=== PATIENT | female | born 1980 | race Caucasian/White ===

== ENCOUNTER 2021-09-26 05:48 | Observation (INO) | payer OTHER ==
[~2021-09-26] VITALS: Ht 157.5 cm; Wt 108.9 kg
[~2021-09-26 05:48] MED LIST: CLARITIN5 MG PO; QVAR7.3 G1 INH; STOOL SOFTENER1 EAC2 PO; VENTOLIN HFA18 GM INH; WELLBUTRIN XL150 MG PO; ZANTAC 7575 MG PO
== END 2021-09-26 12:30 | disposition home or self-care (01) ==
LOC: FBC 05:48 → FBCO 05:48 → FBC 06:15 → FBCO 06:15 → DS 07:30 → FBCO 07:30 → FBC 12:30
PROVIDERS: ADMIT Obstetrics & Gynecology; ATTEND Obstetrics & Gynecology
DX: O32.0XX0 Maternal care for unstable lie, not applicable or unspecified (principal); O32.2XX0 Maternal care for transverse and oblique lie, not applicable or unspecified; O40.3XX0 Polyhydramnios, third trimester, not applicable or unspecified; O09.523 Supervision of elderly multigravida, third trimester; O99.213 Obesity complicating pregnancy, third trimester; E66.9 Obesity, unspecified; Z3A.38 38 weeks gestation of pregnancy
CPT/HCPCS: 01958; 36415; 59412; 85027; 86850; 86900; 86901; G0378; J2405; J3105; J7121

== ENCOUNTER 2021-10-02 07:28 | Inpatient (IN) | payer OTHER ==
[~2021-10-02] VITALS: Ht 157.5 cm; Wt 109.3 kg
--- NOTE | ~2021-10-02 | OR ---
[facility] [address], [place] [address] Draft DATE OF OPERATION: 10/02/2021 SURGEON: Natalie Garcia DO PLASTIC DIE MAKER APPRENTICE: Dr. Baker. PROCEDURE: Primary low-transverse with bilateral tubal ligation. PREOPERATIVE DIAGNOSES: Term , unstable lie, polyhydramnios failed version, 39 weeks gestation, history of cholestasis in , advanced maternal age, maternal obesity. POSTOPERATIVE DIAGNOSES: Term , unstable lie, polyhydramnios failed version, 39 weeks gestation, history of cholestasis in , advanced maternal age, maternal obesity as well as term delivered. BLOOD LOSS: 600 mL. ANESTHESIA: Spinal. FINDINGS: A viable term female weighing 7 pounds 1 ounce with Apgars of 8 and 9 at 1 and 5 minutes respectively. position transverse with head in maternal right hip at the time of delivery. Normal-appearing uterus, bilateral tubes and ovaries. INDICATIONS: The patient is a 41-year-old G5, P3-0-1-3 at 39 and one week's gestation, who presented this morning with complaints of leaking fluid. Nitrazine was positive and due to known unstable lie with history of failed version, this bedside ultrasound was performed which confirmed transverse lie with head to maternal left. Risks, benefits, and alternatives to primary were discussed. The patient confirmed desire for sterilization. Of note, tubal ligation in case the indication had been approved previously by the ethics committee. The patient's is also very much in agreement with this plan. PATIENT NAME: KY BOWER OPERATIVE REPORT DATE OF : 84 REPORT #: [id number] PHYSICIAN: NATALIE GARCIA DO PCP: TIFFANIE LATHAM MD REPORT IS CONFIDENTIAL AND NOT TO BE RELEASED WITHOUT AUTHORIZATION [facility] [address] [place] [id number] Draft DESCRIPTION OF PROCEDURE: The patient was taken back to the operating room where she was given 3 g of Ancef and 500 mg of azithromycin. Spinal anesthesia was placed and she was prepped and draped in normal sterile fashion in supine position with a leftward tilt. A Pfannenstiel incision was made with a scalpel, carried down to the underlying layer of fascia with Bovie cautery. The fascia was incised in midline and extended laterally with Chin scissors. Inferior margin of fascia was grasped and elevated with Pily clamps. Underlying rectus muscles dissected off bluntly and sharply with Chin scissors. This was then released in a similar fashion. The superior margin was grasped and elevated with Chin scissors. Underlying rectus muscle was dissected off bluntly and sharply. Peritoneum was entered bluntly and extended with lateral traction. Ashkan retractor was placed. Of note, immediately upon entry head was palpable in a cephalic position, however, while Ashkan retractor is being placed, head repositioned to transverse with head to maternal right hip. Due to unstable lie, decision was made to proceed with low-transverse rather than automatic incision and the 's head was easily grasped and guided to the hysterotomy and through. Nuchal x1 was noted and reduced and then shoulders and remainder of body were easily delivered through the hysterotomy. The cord was immediately doubly clamped and cut and baby was handed off to waiting nursery personnel including the flight readiness technician. Cord blood was collected for type and Sharon and placenta was manually extracted. Uterus was cleared of clots and debris. Hysterotomy was closed in a two-layer closure, 1st with O Monocryl in a running locked fashion, second with O Monocryl in an imbricating manner with hemostasis resulting. Uterus was then exteriorized, providing excellent visualization of bilateral tubes. The right tube was grasped with a Angel, followed to the fimbriated end. Hole was made in the mesosalpinx with Bovie cautery and O chromic was used to suture ligate the mesosalpinx distally and proximally from the hole in the mesosalpinx. Tube was then excised, completing right salpingectomy. Excellent hemostasis was noted. No bleeding was noted and attention was turned to the left side. In a similar manner, after following the tube to the fimbriated end, a window was made in the mesosalpinx with the Bovie cautery. O chromic was used to suture ligate the mesosalpinx through the fimbriated end and then proximally to the cornua. Excellent hemostasis was noted. Metzenbaum scissors were used to excise the tube. Hemostasis was again noted and uterus was carefully returned to the abdomen and pelvis after completion of successful bilateral salpingectomy. Ovaries appeared normal bilaterally. Pelvis was suction irrigated with warm sterile saline. Again, excellent hemostasis was noted. Ashkan retractor was removed. Hysterotomy was reinspected and peritoneum was closed with 2-0 Vicryl in a running fashion. Rectus muscle was reapproximated at midline with O Vicryl in a simple interrupted fashion x2. Perforating vessels were cauterized with Bovie cautery with one [id number] suture required over the distal end of the muscular attachments at midline on the anterior fascia. Due to persistent oozing, rectus muscle was suction irrigated with warm sterile saline and hemostasis was again noted. Fascia was closed with O Vicryl with one stitch 1st from the right apex to midline, then a 2nd PATIENT NAME: KY BOWER OPERATIVE REPORT DATE OF : 84 REPORT #: [id number] PHYSICIAN: NATALIE GARCIA DO PCP: TIFFANIE LATHAM MD REPORT IS CONFIDENTIAL AND NOT TO BE RELEASED WITHOUT AUTHORIZATION [facility] [address], [place] [address] Draft stitch from left apex to midline, meeting in the middle. Excellent hemostasis. Subcutaneous layer was inspected. Perforating vessels were cauterized with Bovie cautery. This was suction irrigated with warm sterile saline and hemostasis was noted. Subcutaneous layer was reapproximated with 3-0 Vicryl in a running fashion and skin was closed with skin clips. Uterus was Crede "d with minimal bleeding or clots noted and cervix dilated to 1 cm. All sponge and instrument counts were correct. The patient was taken to recovery in stable and satisfactory condition. DO MARQUEZ Thompson/MODL /[id number] Copies: ~ PATIENT NAME: KY BOWER OPERATIVE REPORT DATE OF : 84 REPORT #: [id number] PHYSICIAN: NATALIE GARCIA DO PCP: TIFFANIE LATHAM MD REPORT IS CONFIDENTIAL AND NOT TO BE RELEASED WITHOUT AUTHORIZATION
--- NOTE | 2021-10-02 08:43 | NUR ---
RT COLLECTED RAPID COVID 19 SWAB WITH NO COMPLICATIONS AT THIS TIME.
--- NOTE | 2021-10-02 10:37 | NUR ---
10/02/21 Ana Russell Geovani8-PATIENT ARRIVED TO ROOM 103 FOR FBC RECOVERY. PATIENT AWAKE DENIES PAIN OR NAUSEA. SPINAL LEVEL T10. IV TO RIGHT HAND CDI INFUSING WITH LR 20 PITOCIN. FUNDUS FIRM AT UMBILICUS LIGHT RUBRA DRAINAGE ON RADHA PAD. SR. DAD AT BEDSIDE HOLDING BABY.
--- NOTE | 2021-10-03 12:04 | PR ---
[facility] [address] [facility] [place], [place] [address] Signed PP Progress Notes Datetime Report Generated by CPMelisa: 10/03/2021 12:04 SUBJECTIVE: [id number] Pain: Within Normal Limits Nausea/Vomiting: Denies Flatus: Yes Bowel Movement: No Vital Signs: [id number] Vital Signs: Reviewed; Within Normal Limits Cardiovascular: Normal Respiratory: Normal Abdomen/Uterus: Normal Lochia: Normal Vulva/Perineum: Normal Breasts: Normal Extremities: Normal Incision: Normal Progress: Normal Exam Comments: NAD, resting in bed RRR No dyspnea or retractions Abd SNTND, FFBU Ext: trace edema, neg Eleonora's BL IMPRESSION/PLAN/PROCEDURES: [id number] Impression: Normal Progression Plan: Continue Present Management Progress Notes: 41 yo POD#1 s/p PLTCS+BTL for transverse lie and PROM -Pt seen and examined, as above -Progressing well: ambulating, voiding, tolerating regular diet today after significant nausea/ vomiting immediately postop yesterday -Pain well-controlled with orals and toradol, +flatus, - BM Acute blood loss anemia: hgb 9.1 this am. Discussed starting oral iron once having BM Denies complaints/ concerns, anticipate DC to home tomorrow or Thursday Signing Physician: Natalie Garcia DO *Electronically Signed* 10/03/21 1204 NATALIE GARCIA DO PATIENT NAME: KY BOWER PROGRESS NOTE DATE OF : 84 PHYSICIAN: NATALIE GARCIA DO RPT #: [id number] REPORT IS CONFIDENTIAL AND NOT TO BE RELEASED WITHOUT AUTHORIZATION [address], [place] [address] Signed Copies: ~ *Electronically Signed* 10/03/21 1204 NATALIE GARCIA DO PATIENT NAME: KY BOWER PROGRESS NOTE DATE OF : 84 PHYSICIAN: NATALIE GARCIA DO RPT #: [id number] REPORT IS CONFIDENTIAL AND NOT TO BE RELEASED WITHOUT AUTHORIZATION
--- NOTE | 2021-10-03 13:13 | PATH ---
[facility] [address] [place], [place] [address] Signed SPECIMEN(S): A RIGHT TUBE SPECIMEN(S): B LEFT TUBE SPECIMEN SOURCE: A. RIGHT TUBE B. LEFT TUBE CLINICAL HISTORY: . Bilateral tubal ligation. FINAL PATHOLOGIC DIAGNOSIS: A. Fallopian tube, right, "ligation": - Fimbriated segment of fallopian tube with no histopathologic abnormality. - Complete cross-section identified. B. Fallopian tube, left, "ligation": - Fimbriated segment of fallopian tube with no histopathologic abnormality. - Complete cross-section identified. NAL:cml:C2NR MICROSCOPIC EXAMINATION: Histologic sections of all submitted blocks are examined by light microscopy. These findings, together with the gross examination, support the pathologic diagnosis. GROSS DESCRIPTION: Two specimens are received in two containers, labeled KS. A. The specimen, labeled "KS", and designated on the requisition "right tube," is received in formalin and consists of a tubal segment of tissue with attached fimbria measuring 5.7 cm in length and 0.6 to 0.7 cm in diameter. The fimbriated extremity appears normal and no focal tubal lesions are grossly identified. Tubal inbound sales representative sections and entire fimbriated extremity are submitted in cassettes A1-A2. B. The specimen, labeled "KS", and designated on the requisition "left tube," is received in formalin and consists of a tubal segment of tissue with attached fimbria measuring 5.5 cm in length and 0.5 to 0.7 cm in diameter. The fimbriated extremity appears normal and no focal tubal lesions are grossly identified. The specimen is inked blue and tubal inbound sales representative sections with entire fimbriated extremity are submitted in cassettes B1-B2. AT (under the direct supervision of a pathologist) PATIENT NAME: KY BOWER PATHOLOGY DATE OF : 84 REPORT #: [id number] PHYSICIAN: MARGAUX GUARDADO PCP: TIFFANIE LATHAM MD REPORT IS CONFIDENTIAL AND NOT TO BE RELEASED WITHOUT AUTHORIZATION [facility] [address] [place] [address] Signed The Gross Description was prepared using a voice recognition system. The report was reviewed for accuracy; however, sound-alike word errors, addition and/or deletions may occur. If there is any question about this report, please contact Client Services. PERFORMING LABORATORY: The technical component was performed by [facility] [address] (CLIA# [id number]). [facility], [address] [address] (CLIA# [id number]). Diagnostician: Mariluz Steward MD Pathologist Electronically Signed 10/03/2021 Copies: ~ PATIENT NAME: KY BOWER PATHOLOGY DATE OF : 84 REPORT #: [id number] PHYSICIAN: MARGAUX GUARDADO PCP: TIFFANIE LATHAM MD REPORT IS CONFIDENTIAL AND NOT TO BE RELEASED WITHOUT AUTHORIZATION
--- NOTE | 2021-10-04 09:32 | PR ---
[facility] [place] [facility] [address] [place], [place] [address] Signed PP Progress Notes Datetime Report Generated by CPN: 10/04/2021 09:32 SUBJECTIVE: [id number] Pain: Within Normal Limits Nausea/Vomiting: Denies Flatus: Yes Bowel Movement: No Vital Signs: [id number] Vital Signs: Reviewed; Within Normal Limits EXAM: Ongoing Cardiovascular: Normal Respiratory: Normal Abdomen/Uterus: Normal Lochia: Normal Vulva/Perineum: Normal Breasts: Normal Extremities: Normal Incision: Normal Progress: Normal Exam Comments: NAD, walking back to bed from restroom No dyspnea/ retractions RRR Abd SNTND, FFBU Incision: c/d/i, mild bruising inferior to incision Ext: Trace edema, neg Eleonora's BL IMPRESSION/PLAN/PROCEDURES: [id number] Impression: Normal Progression Plan: Continue Present Management; Discharge Progress Notes: 41 yo POD#2 s/p PLTCS+BTL for transverse/ unstable lie -Progressing well postop: seen and examined, as above. Pain well controlled with percocet and motrin. Ambulating, voiding, tolerating regular diet. +Flatus, - BM, denies gas pains. Lochia light. -Anticipate staple removal in office on Thursday -BTL for contraception Requesting DC to home today, baby cleared by peds Signing Physician: Natalie Garcia DO *Electronically Signed* 10/04/21 0932 NATALIE GARCIA DO PATIENT NAME: KY BOWER PROGRESS NOTE DATE OF : 84 PHYSICIAN: NATALIE GARCIA DO RPT #: [id number] REPORT IS CONFIDENTIAL AND NOT TO BE RELEASED WITHOUT AUTHORIZATION [facility] [place] [facility] [address] [place] [address] [place] [address] Signed Copies: ~ *Electronically Signed* 10/04/21 0932 NATALIE GARCIA DO PATIENT NAME: KY BOWER PROGRESS NOTE DATE OF : 84 PHYSICIAN: NATALIE GARCIA #: [id number] REPORT IS CONFIDENTIAL AND NOT TO BE RELEASED WITHOUT AUTHORIZATION
== END 2021-10-04 12:30 | disposition home or self-care (01) | DRG 784 ==
LOC: FBCO 07:28 → FBC 08:05
PROVIDERS: ADMIT Obstetrics & Gynecology; ATTEND Obstetrics & Gynecology
PROC: 10D00Z1 Extraction of Products of Conception, Low, Open Approach (ICD-10-PCS; principal; 2021-10-02 09:27)
PROC: 0UB70ZZ Excision of Bilateral Fallopian Tubes, Open Approach (ICD-10-PCS; 2021-10-02 09:27)
DX: O80 Encounter for full-term uncomplicated delivery (principal); D62 Acute posthemorrhagic anemia; O99.214 Obesity complicating childbirth; O99.02 Anemia complicating childbirth; Z37.0 Single live birth; Z3A.39 39 weeks gestation of pregnancy
CPT/HCPCS: 01961; 36415; 85027; 86850; 86900; 86901; A9270; C9803; J0456; J0690; J1650; J1885; J2001; J2274; J2405; J2590; J2765; J7060; J7121; U0003

== ENCOUNTER 2024-07-20 08:23 | Emergency (ER) | payer OTHER ==
[~2024-07-20] VITALS: Ht 152.4 cm; Wt 102.5 kg
[2024-07-20] MEDS ORDERED: ASPIRIN 81 MG CHEW PO ONE (08:30)
[2024-07-20] MEDS ORDERED: CITALOPRAM HBR20 MG PO (08:33)
[2024-07-20 08:36] LABS: BASOPHILS 0.9 % (0-2); EOSINOPHILS 8.3 % (0-6); HEMATOCRIT 41.9 % (35.0-50.0); LYMPHOCYTES 25.4 % (24-44); MCH 27.4 (27-36); MCHC 33.4 g/dl (30-36); MCV 82.1 fl (81-99); MONOCYTES 7.9 % (0-12); NEUTROPHILS 57.5 % (39-80); PLATELET COUNT 271 K/uL (140-440); RBC 5.11 M/ul (4.3-5.7); RDW 14.6 (10.5-15.0)
[2024-07-20 08:54] LABS: ALBUMIN 3.8 g/dL (3.4-5.0); BILIRUBIN, TOTAL 0.4 ng/dL (0.2-1.0); BUN/CREATININE RATIO 14.41 (6.0-28.6); CALCIUM 8.8 mg/dL (8.5-10.1); CREATININE, SERUM 1.11 mg/dL (0.55-1.02); PROTEIN, TOTAL 7.6 g/dL (6.4-8.2)
--- NOTE | 2024-07-20 10:53 | EKG ---
[facility] [address] [facility] [place], [place] [address] Signed Normal sinus rhythm Normal ECG No previous ECGs available Confirmed by Sravanthi Timmons MD ([id number]) on 07/20/2024 10:52:59 AM Electronically Signed By: SRAVANTHI TIMMONS MD 07/20/24 1053 PATIENT NAME: KY BOWER Electrocardiogram DATE OF : 84 PHYSICIAN: SRAVANTHI TIMMONS MD REPORT #: [id number] REPORT IS CONFIDENTIAL AND NOT TO BE RELEASED WITHOUT AUTHORIZATION
[2024-07-20 11:01] VITALS: BP 160/91
== END 2024-07-20 11:02 | disposition home or self-care (01) ==
LOC: ED 08:23
PROVIDERS: Emergency Medicine
DX: R07.2 Precordial pain (principal); F32.A Depression, unspecified; Z79.899 Other long term (current) drug therapy
CPT/HCPCS: 36415; 71045; 71275; 74174; 80053; 83690; 83735; 84484; 84702; 84703; 85025; 85379; 93005; 93010; 99285-25; A9270; Q9967

== ENCOUNTER 2024-07-28 12:21 | Emergency (ER) | payer OTHER ==
[~2024-07-28] VITALS: Ht 152.4 cm; Wt 88.0 kg
[~2024-07-28 12:21] MED LIST changes: +CITALOPRAM HBR20 MG PO
--- OUTSIDE RECORDS SUMMARY | 2024-07-28 12:28 | XMS ---
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 Zak has no Care Guidelines for this patient. [facility]rid[facility] V[facility] (12 MO.) [facility] NOTE: Visits indicate total known visits. [place] [facility] [place] [facility] COMPLAINT: - BLOOD PRESSURE PROBLEM 07/20/2024 08:24 [facility] [place] TYPE: Emergency COMPLAINT: - CHEST PAIN DIAGNOSES: - Depression, unspecified - Other group home (current) drug therapy - Precordial pain INPATIENT VISIT TRACKING (12 MO.) No inpatient visits to display in this time frame [email or web address]
[2024-07-28 12:41] LABS: BASOPHILS 1.6 % (0-2); EOSINOPHILS 4.1 % (0-6); HEMATOCRIT 39.2 % (35.0-50.0); LYMPHOCYTES 25.8 % (24-44); MCH 27.4 (27-36); MCHC 33.1 g/dl (30-36); MCV 82.8 fl (81-99); MONOCYTES 4.4 % (0-12); NEUTROPHILS 64.1 % (39-80); PLATELET COUNT 280 K/uL (140-440); RBC 4.74 M/ul (4.3-5.7); RDW 14.5 (10.5-15.0)
[2024-07-28] MEDS ORDERED: VAZALORE81 MG PO (12:43)
[2024-07-28] MEDS ORDERED: ZYRTEC10 M3 PO (12:43)
[2024-07-28 12:59] LABS: ALBUMIN 3.8 g/dL (3.4-5.0); ALBUMIN/GLOBULIN RATIO 1.03 (1.1-2.4); ANION GAP 11.6 (7-21); BILIRUBIN, TOTAL 0.4 ng/dL (0.2-1.0); BUN/CREATININE RATIO 10.16 (6.0-28.6); CALCIUM 8.7 mg/dL (8.5-10.1); CREATININE, SERUM 1.18 mg/dL (0.55-1.02); MAGNESIUM 1.9 mg/dL (1.8-2.4); POTASSIUM 3.6 mmol/L (3.5-5.1); PROTEIN, TOTAL 7.5 g/dL (6.4-8.2)
[2024-07-28 13:50] VITALS: BP 111/75
--- NOTE | 2024-07-29 21:52 | EKG ---
[facility] [address] [facility] [place], [place] [address] Signed Normal sinus rhythm Nonspecific ST abnormality Abnormal ECG No previous ECGs available Confirmed by Anupam Mendez DO ([id number]) on 07/29/2024 9:52:26 PM Electronically Signed By: ANUPAM MENDEZ DO 07/29/242151 PATIENT NAME: TIMOTEOAnnKYSelam CLEARY Electrocardiogram DATE OF : 84 PHYSICIAN: ANUPAM MENDEZ DO REPORT #: [id number] REPORT IS CONFIDENTIAL AND NOT TO BE RELEASED WITHOUT AUTHORIZATION
== END 2024-07-28 13:50 | disposition home or self-care (01) ==
LOC: ED 12:21
PROVIDERS: Emergency Medicine
DX: R07.89 Other chest pain (principal); Z91.011 Allergy to milk products; Z79.82 Long term (current) use of aspirin; Z79.899 Other long term (current) drug therapy
CPT/HCPCS: 36415; 71045; 80053; 83735; 84484; 85025; 93005; 93010; 99285-25